=== PATIENT | female | born 1940 | race Caucasian/White ===

== ENCOUNTER 2023-12-04 08:55 | Outpatient (RCR) | payer MEDICARE, OTHER, SELFPAY | END 2023-12-04 23:59 | disposition home or self-care (01) | LOC: RPT 08:55 | PROVIDERS: ATTENDING PHYSICIAN Family Medicine | DX: K59.00 Constipation, unspecified (principal); R32 Unspecified urinary incontinence; Z73.6 Limitation of activities due to disability; M62.81 Muscle weakness (generalized); R27.8 Other lack of coordination | CPT/HCPCS: 97112; 97140; 97162; 97530 ==

== ENCOUNTER 2023-12-25 08:54 | Outpatient (RCR) | payer MEDICARE, OTHER, SELFPAY | END 2023-12-25 23:59 | disposition home or self-care (01) | LOC: RPT 08:54 | PROVIDERS: ATTENDING PHYSICIAN Family Medicine | DX: K59.00 Constipation, unspecified (principal); R32 Unspecified urinary incontinence; Z73.6 Limitation of activities due to disability; M62.81 Muscle weakness (generalized); R27.8 Other lack of coordination; M54.9 Dorsalgia, unspecified; R10.30 Lower abdominal pain, unspecified | CPT/HCPCS: 97110; 97112; 97530 ==

== ENCOUNTER 2024-02-05 08:57 | Outpatient (RCR) | payer MEDICARE, OTHER, SELFPAY | END 2024-02-05 23:59 | disposition home or self-care (01) | LOC: RPT 08:57 | PROVIDERS: ATTENDING PHYSICIAN Family Medicine | DX: K59.00 Constipation, unspecified (principal); R32 Unspecified urinary incontinence; Z73.6 Limitation of activities due to disability; M62.81 Muscle weakness (generalized); R27.8 Other lack of coordination | CPT/HCPCS: 97112; 97530 ==

== ENCOUNTER 2024-02-19 08:55 | Outpatient (RCR) | payer MEDICARE, OTHER, SELFPAY | END 2024-02-19 10:08 | disposition home or self-care (01) | LOC: RPT 08:55 | PROVIDERS: ATTENDING PHYSICIAN Family Medicine | DX: R32 Unspecified urinary incontinence (principal); K59.00 Constipation, unspecified; M62.81 Muscle weakness (generalized); R27.8 Other lack of coordination; Z73.6 Limitation of activities due to disability | CPT/HCPCS: 97110; 97530 ==

== ENCOUNTER → 2024-05-07 10:08 | Outpatient (REF) | payer MEDICARE, OTHER, SELFPAY | LOC: HWRAD 10:08 | PROVIDERS: ATTENDING PHYSICIAN Family Medicine | DX: R05.3 Chronic cough (principal) | CPT/HCPCS: 71046 ==

== ENCOUNTER → 2024-11-06 10:27 | Outpatient (REF) | payer MEDICARE, OTHER, SELFPAY | LOC: WDC 10:27 | PROVIDERS: ATTENDING PHYSICIAN Obstetrics & Gynecology Gynecology; FAMILY PHYSICIAN Family Medicine | DX: Z78.0 Asymptomatic menopausal state (principal); Z12.31 Encounter for screening mammogram for malignant neoplasm of breast | CPT/HCPCS: 77063; 77067; 77080 ==